=== PATIENT | female | born 2000 | race Caucasian/White ===

== ENCOUNTER 2020-02-26 17:26 | Emergency (ER) | payer SELFPAY ==
[~2020-02-26] VITALS: Ht 157.5 cm; Wt 91.0 kg
[2020-02-26 17:36] VITALS: BP 147/90
[2020-02-26] MEDS ORDERED: VALA10005 PO (17:43)
[2020-02-26] MEDS ORDERED: MUPI15CR8 TP (17:43)
[2020-02-26] MEDS ORDERED: PRED50TA PO (17:43)
--- NOTE | 2020-02-26 17:44 | PHYS DOC ---
Past History Past Medical History: No Pertinent History Smoking: Non-smoker General Adult EDM: Chief Complaint: SKIN RASH/ABSCESS HPI: HPI: 19-year-old female otherwise healthy, who presents for evaluation of a one-week history of vesicular rash at the dorsal aspect of the right fifth digit overlying the PIP joint. It is mildly pruritic and brandon occasionally. She is a prior history of herpes zoster that affected her left flank. She has no other similar lesions. Denies perineal rash. No fevers or chills. Review of Systems: Review of Systems: General: No fevers, chills. CV: No chest pain, edema. Resp: No shortness of breath, cough. GI: No abdominal pain, nausea, vomiting. : No dysuria, discharge, or perineal rash. Neuro: No headache, dizziness. MSK: Reports right fifth digit discomfort. Skin: Reports rash. Remainder of systems reviewed and otherwise negative unless specified. Heart Score: Risk Factors: Risk Factors: DM, Current or recent (<one month) smoker, HTN, HLP, family history of CAD, obesity. Risk Scores: Score 0 - 3: 2.5% MACE over next 6 weeks - Discharge Home Score 4 - 6: 20.3% MACE over next 6 weeks - Admit for Clinical Observation Score 7 - 10: 72.7% MACE over next 6 weeks - Early Invasive Strategies Physical Exam: PE: Gen: NAD. Well nourished. Head: NC/AT Eyes: No scleral icterus. No conjunctival injection. ENT: MMM. Posterior OP clear. Neck: Supple. NT. CV: RRR. Peripheral pulses intact. Resp: CTAB. MSK: No peripheral cyanosis. Non-circumferential vesicular rash approximately 1.5 cm in diameter at the dorsal aspect of the right fifth digit overlying the PIP joint without limitations and active range of motion. No rash elsewhere in the extremities. Neuro: Awake and alert. Skin: Warm. Dry. Psych: Appropriate mood & affect. EKG: EKG: [] Radiology/Procedures: Radiology/Procedures: [] Course & Med Decision Making: Course & Med Decision Making In summary, 19-year-old female who presents with vesicular rash the right fifth digit, concerning for herpes infection, either local or possibly early manifestation of zoster. Would be an atypical location for a herpetic arash, though still within realm of possibility. No systemic symptoms. No rash el sewhere. She be treated with Valtrex and prednisone, first dose here. We'll also prescribe topical mupirocin to decrease the likelihood of bacterial superinfection. Advised not to disrupt the vesicles, as this would spread the infection. Advised proper hygiene. Will be discharged home with prescriptions for Valtrex, prednisone, mupirocin. Outpatient PMD follow-up. Return precautions given. Pamella Disclaimer: Pamella Disclaimer: This electronic medical record was generated, in whole or in part, using a voice recognition dictation system. Departure Departure: Impression: Primary Impression: Vesicular rash Disposition: HOME, SELF-CARE Condition: STABLE Referrals: PCP,LIZETH (PCP) Patient Instructions: Herpes Simplex Additional Instructions: Please do not touch the rash. Apply the prescribed ointment with a Q-tip or with a gloved finger to prevent bacterial superinfection. Take all of the prescribed antiviral and prednisone. Follow up with your primary doctor. Return to the ED if you develop new or worsening symptoms. Scripts Mupirocin Calcium (MUPIROCIN) 15 Gm Cream..g. 1 NEVAEH TP TID for rash for 10 Days, #30 GM 0 Refills Prov: JARROD MÉNDEZ H DO 02/26/20 Prednisone (PREDNISONE) 50 Mg Tablet 1 TAB PO DAILY for rash, #7 TAB You received this medication in the emergency room today. You will starting your next dose tomorrow. Prov: LEJARROD H DO 02/26/20 Valacyclovir Hcl (VALTREX) 1,000 Mg Tablet 1 TAB PO TID for rash, #21 TAB Prov: LEJARROD H DO 02/26/20 LEJARROD DO Feb 26, 2020 17:44
[2020-02-26] MEDS ORDERED: predniSONE 20 MG TABLET PO ONE (18:15)
[2020-02-26] MEDS ORDERED: valACYclovir 500 MG TABLET. PO SCH (18:15)
== END 2020-02-26 17:52 | disposition home or self-care (01) ==
LOC: ER 17:26
DX: R23.8 Other skin changes (principal)
CPT/HCPCS: 99283; J7512

== ENCOUNTER 2020-06-08 11:54 | Emergency (ER) | payer MEDICAID ==
[~2020-06-08] VITALS: Ht 157.5 cm; Wt 91.0 kg
[~2020-06-08 11:54] MED LIST: MUPI15CR8 TP; PRED50TA PO; VALA10005 PO
[2020-06-08] MEDS ORDERED: CLIN300C8 PO (12:55)
--- NOTE | 2020-06-08 12:55 | PHYS DOC ---
Past History Past Medical History: No Pertinent History Additional Past Medical Histor: SHINGLES, MRSA Past Surgical History: Cholecystectomy, Tonsillectomy Smoking: Non-smoker Alcohol Use: None General Adult EDM: Chief Complaint: SKIN PROBLEM HPI: HPI: Patient is a [age] year old [sex] who presents with [] Review of Systems: Review of Systems: Constitutional: Denies fever or chills Eyes: Denies change in visual acuity HENT: Denies nasal congestion or sore throat Respiratory: Denies cough or shortness of breath Cardiovascular: Denies chest pain or edema GI: Denies abdominal pain, nausea, vomiting, bloody stools or diarrhea : Denies dysuria Musculoskeletal: Denies back pain or joint pain Integument: Denies rash Neurologic: Denies headache, focal weakness or sensory changes Endocrine: Denies polyuria or polydipsia Lymphatic: Denies swollen glands Psychiatric: Denies depression or anxiety Heart Score: Risk Factors: Risk Factors: DM, Current or recent (<one month) smoker, HTN, HLP, family history of CAD, obesity. Risk Scores: Score 0 - 3: 2.5% MACE over next 6 weeks - Discharge Home Score 4 - 6: 20.3% MACE over next 6 weeks - Admit for Clinical Observation Score 7 - 10: 72.7% MACE over next 6 weeks - Early Invasive Strategies Allergies: Allergies: Allergies Coded Allergies Type Severity Reaction Last Updated Verified Penicillins Allergy Unknown RASH 06/08/20 Yes Physical Exam: PE: Constitutional: Well developed, well nourished, no acute distress, non-toxic appearance. [] HENT: Normocephalic, atraumatic, bilateral external ears normal, oropharynx moist, no oral exudates, nose normal. [] Eyes: PERRLA, EOMI, conjunctiva normal, no discharge. [] Neck: Normal range of motion, no tenderness, supple, no stridor. [] Cardiovascular:Heart rate regular rhythm, no murmur [] Lungs & Thorax: Bilateral breath sounds clear to auscultation [] Abdomen: Bowel sounds normal, soft, no tenderness, no masses, no pulsatile masses. [] Skin: Warm, dry, no erythema, no rash. [] Back: No tenderness, no CVA tenderness. [] Extremities: No tenderness, no cyanosis, no clubbing, ROM intact, no edema. [] Neurologic: Alert and oriented X 3, normal motor function, normal sensory function, no focal deficits noted. [] Psychologic: Affect normal, judgement normal, mood normal. [] EKG: EKG: [] Radiology/Procedures: Radiology/Procedures: [] Course & Med Decision Making: Course & Med Decision Making Pertinent Labs and Imaging studies reviewed. (See chart for details) [] Dragon Disclaimer: Dragon Disclaimer: This electronic medical record was generated, in whole or in part, using a voice recognition dictation system. Departure Departure: Impression: Primary Impression: Cellulitis and abscess of right leg Disposition: HOME/RESIDENCE PRIOR TO ADM Condition: STABLE Referrals: PCP,NO (PCP) Patient Instructions: Abscess, [id number] Additional Instructions: The area of swelling and redness is concerning for the start of an abscess. It does not appear that it would be able to incise and drain. Please take antibiotic as prescribed. If symptoms worsen or if area become more prominent please present to your family physician and/or the ED for re-evaluation. Scripts Clindamycin Hcl (CLINDAMYCIN HCL) 300 Mg Capsule 1 CAP PO TID for infection, #21 CAP Prov: LAURA CUNNINGHAM DO 06/08/20 LAURA CUNNINGHAM DO Jun 08, 2020 12:55
[2020-06-08] MEDS ORDERED: CLINDAMYCIN HCL 150 MG CAPSULE PO ONE (13:00)
[2020-06-08 13:02] VITALS: BP 124/77
== END 2020-06-08 13:06 | disposition home or self-care (01) ==
LOC: ER 11:54
DX: L02.415 Cutaneous abscess of right lower limb (principal); L03.115 Cellulitis of right lower limb; Z86.14 Personal history of Methicillin resistant Staphylococcus aureus infection; Z88.0 Allergy status to penicillin
CPT/HCPCS: 99283

== ENCOUNTER 2020-08-16 14:18 | Emergency (ER) | payer MEDICAID ==
[~2020-08-16] VITALS: Ht 157.5 cm; Wt 98.3 kg
[2020-08-16 14:18] VITALS: BP 147/97
[~2020-08-16 14:18] MED LIST changes: +CLIN300C8 PO
[2020-08-16] MEDS ORDERED: ACYC5CRE2 TP (15:09)
--- NOTE | 2020-08-16 15:09 | PHYS DOC ---
Past History Past Medical History: Asthma, MRSA Additional Past Medical Histor: SHINGLES, MRSA Past Surgical History: Cholecystectomy, Tonsillectomy, Other Additional Past Surgical Histo: adnoidectomy; multiple I&D Smoking: Cigarettes Alcohol Use: Occasionally Drug Use: None General Adult EDM: Chief Complaint: SKIN RASH/ABSCESS HPI: HPI: History obtained for the patient. Patient is a 20-year-old female who presents with chief complaint of rash to her right index finger. Patient states she has noted progressive rash over the past several days. States it is somewhat itchy and painful. She states it appears like a small fluid-filled blister. She does she has had this once before and was diagnosed with herpetic arash. She states she was given medication in the past that improved her symptoms. She is unsure what the name of this medicine is. She denies any fevers. She denies any vomiting. She denies any redness or increased warmth to the finger. Denies any difficulty in range of motion. Denies numbness or tingling. Denies any known history of herpes or chickenpox. Has not tried medicine prior to arrival. No other complaints. Review of Systems: Review of Systems: Constitutional: Denies fever or chills Eyes: Denies change in visual acuity HENT: Denies nasal congestion or sore throat Respiratory: Denies cough or shortness of breath Cardiovascular: Denies chest pain or edema GI: Denies abdominal pain, nausea, vomiting, bloody stools or diarrhea : Denies dysuria Musculoskeletal: Denies back pain or joint pain Integument: Positive for rash Neurologic: Denies headache, focal weakness or sensory changes Endocrine: Denies polyuria or polydipsia Lymphatic: Denies swollen glands Psychiatric: Denies depression or anxiety Heart Score: Risk Factors: Risk Factors: DM, Current or recent (<one month) smoker, HTN, HLP, family history of CAD, obesity. Risk Scores: Score 0 - 3: 2.5% MACE over next 6 weeks - Discharge Home Score 4 - 6: 20.3% MACE over next 6 weeks - Admit for Clinical Observation Score 7 - 10: 72.7% MACE over next 6 weeks - Early Invasive Strategies Allergies: Allergies: Allergies Coded Allergies Type Severity Reaction Last Updated Verified Penicillins Allergy Unknown RASH 06/08/20 Yes Physical Exam: PE: Constitutional: Well developed, well nourished, no acute distress, non-toxic appearance. [] HENT: Normocephalic, atraumatic, bilateral external ears normal, oropharynx moist, no oral exudates, nose normal. [] Eyes: PERRLA, EOMI, conjunctiva normal, no discharge. [] Neck: Normal range of motion, no tenderness, supple, no stridor. [] Cardiovascular:Heart rate regular rhythm, no murmur [] Lungs & Thorax: Bilateral breath sounds clear to auscultation [] Abdomen: soft, no tenderness, no masses, no pulsatile masses. [] Skin: Warm, dry, no erythema, no rash. [] Back: No tenderness, no CVA tenderness. [] Extremities: Vesicular ullae 1 cm x 1 cm noted to the medial aspect of the right index finger. Overlying the PIP. No fusiform swelling. +2-4 DP pulse on the right. Access Lead strength intact. Currently movements intact. Sensation intact in the median, ulnar, and radial nerve distributions. Neurologic: Alert and oriented X 3, normal motor function, normal sensory function, no focal deficits noted. [] Psychologic: Affect normal, judgement normal, mood normal. [] Current Patient Data: Vital Signs: Vital Signs Date Time Temp Pulse Resp B/P (MAP) Pulse Ox O2 Delivery O2 Flow Rate FiO2 08/16/20 14:18 97.9 95 18 147/97 (114) 96 Room Air EKG: EKG: [] Radiology/Procedures: Radiology/Procedures: [] Course & Med Decision Making: Course & Med Decision Making Pertinent Labs and Imaging studies reviewed. (See chart for details) [] Patient is a well-appearing 20-year-old female presents with chief complaint of rash to her right index finger. Clinically this does appear potentially consistent with herpetic arash. No signs of abscess or bacterial infection. Incision and drainage will be deferred. Patient will begin topical acyclovir. She was instructed to follow-up with her primary care physician within the next week. Return precautions discussed and understood. Stable for discharge home. Pamella Disclaimer: Pamella Disclaimer: This electronic medical record was generated, in whole or in part, using a voice recognition dictation system. Departure Departure: Impression: Primary Impression: Herpetic arash Disposition: 01 HOME/RESIDENCE PRIOR TO ADM Condition: STABLE Referrals: PCP,LIZETH (PCP) AYDIN FREEMAN MD Patient Instructions: Herpetic Arash Additional Instructions: Please follow-up with your primary care physician within the next week. Scripts Acyclovir (ZOVIRAX) 5 Gm Cream..g. 1 NEVAEH TP 5XDAY for rash, #5 GM 1 Refill Prov: MIRANDA MONGE DO 08/16/20 MIRANDA MONGE DO Aug 16, 2020 15:09
== END 2020-08-16 15:20 | disposition home or self-care (01) ==
LOC: ER 14:18
DX: B00.89 Other herpesviral infection (principal); J45.909 Unspecified asthma, uncomplicated; F17.210 Nicotine dependence, cigarettes, uncomplicated; Z86.14 Personal history of Methicillin resistant Staphylococcus aureus infection; Z88.0 Allergy status to penicillin
CPT/HCPCS: 99283

== ENCOUNTER 2020-09-02 12:53 | Emergency (ER) | payer MEDICAID ==
[~2020-09-02] VITALS: Ht 157.5 cm; Wt 98.8 kg
[~2020-09-02 12:53] MED LIST changes: +ACYC5CRE2 TP
--- NOTE | 2020-09-02 13:19 | PHYS DOC ---
Past History Past Medical History: Anxiety, Asthma, Depression, MRSA Additional Past Medical Histor: SHINGLES, MRSA Past Surgical History: Cholecystectomy, Tonsillectomy, Other Additional Past Surgical Histo: adnoidectomy; multiple I&D Smoking: Cigarettes Alcohol Use: Occasionally Drug Use: None General Adult EDM: Chief Complaint: MULTIPLE COMPLAINTS HPI: HPI: Patient is a 20 year old female who presents for evaluation of multiple complaints. Patient states her period is about 2 weeks late. She is concerned because she has had prior miscarriages in the past. She had 2 negative home tests. She also has some clear vaginal discharge. She states that she also had recent nausea vomiting after eating [place] fries yesterday. Furthermore she has generalized malaise. Patient has a history of chronic anxiety. Patient is a 2 para 0 miscarriage 2. Patient has not toxic appearing. Patient states she is has a recent breast tenderness as well Review of Systems: Review of Systems: Constitutional: Denies fever or chills Eyes: Denies change in visual acuity HENT: Denies nasal congestion or sore throat Respiratory: Denies cough or shortness of breath Cardiovascular: Denies chest pain or edema GI: lower abdominal discomfort with nausea and vomiting, no bloody stools or diarrhea : Denies dysuria Musculoskeletal: Denies back pain or joint pain Integument: Denies rash Neurologic: Denies headache, focal weakness or sensory changes Endocrine: Denies polyuria or polydipsia Lymphatic: Denies swollen glands Psychiatric: Denies depression has anxiety Allergies: Allergies: Allergies Coded Allergies Type Severity Reaction Last Updated Verified Penicillins Allergy Unknown RASH 06/08/20 Yes adhesive tape Allergy Unknown 09/02/20 Yes Physical Exam: PE: Constitutional: Well developed, well nourished, no acute distress, non-toxic appearance. [] HENT: Normocephalic, atraumatic, bilateral external ears normal, oropharynx moist, no oral exudates, nose normal. [] Eyes: PERRL, EOMI, conjunctiva normal, no discharge. [] Neck: Normal range of motion, no tenderness, supple, no stridor. [] Cardiovascular:Heart rate regular rhythm, no murmur [] Lungs & Thorax: Bilateral breath sounds clear to auscultation [] Abdomen: Bowel sounds normal, soft, no tenderness, no masses. [] Skin: Warm, dry, no erythema, no rash, 1 cm abscess right groin area upper thigh. [] Back: No tenderness. [] Extremities: No tenderness, no cyanosis, ROM intact, no edema. [] Neurologic: Alert and oriented X 3, normal motor function, normal sensory function, no focal deficits noted. [] Psychologic: Affect abnormal, judgement abnormal, mood abnormal. : Scant discharge present, no adnexal or uterine tenderness, nursing female public relations analyst present [] Current Patient Data: Labs: Laboratory Tests Test 09/02/20 13:10 09/02/20 13:34 09/02/20 13:57 Urine Collection Type Unknown Urine Color Yellow Urine Clarity Hazy Urine pH 8.0 Urine Specific [place] 1.025 Urine Protein Neg Urine Glucose (UA) Neg mg/dL Urine Ketones (Stick) Neg mg/dL Urine Blood Neg Urine Nitrite Neg Urine Bilirubin Neg Urine Urobilinogen Dipstick 0.2 mg/dL Urine Leukocyte Esterase Trace Urine RBC 3-5 /HPF Urine WBC 5-10 /HPF Urine Squamous Epithelial Cells Many /LPF Urine Bacteria Few /HPF Bedside Urine HCG, Qualitative hcg negative Maternal Serum HCG Beta Subunit 1 mIU/mL Current Medications Medications (Trade) Dose Ordered Sig/Robina Route PRN Reason Start Time Stop Time Status Last Admin Dose Admin Lidocaine HCl 20 ml 1X ONCE IJ 09/02/20 14:30 09/02/20 14:31 DC 09/02/20 14:10 Lidocaine HCl 20 ml STK-MED ONCE .ROUTE 09/02/20 14:07 09/02/20 14:07 DC Vital Signs: Vital Signs Date Time Temp Pulse Resp B/P (MAP) Pulse Ox O2 Delivery O2 Flow Rate FiO2 09/02/20 13:02 99.4 103 18 126/88 (101) 97 Room Air EKG: EKG: [] Radiology/Procedures: Radiology/Procedures: [] Heart Score: Risk Factors: Risk Factors: DM, Current or recent (<one month) smoker, HTN, HLP, family history of CAD, obesity. Risk Scores: Score 0 - 3: 2.5% MACE over next 6 weeks - Discharge Home Score 4 - 6: 20.3% MACE over next 6 weeks - Admit for Clinical Observation Score 7 - 10: 72.7% MACE over next 6 weeks - Early Invasive Strategies Course & Med Decision Making: Course & Med Decision Making Pertinent Labs and Imaging studies reviewed. (See chart for details) urine preg test normal Pamella Disclaimer: Pamella Disclaimer: This electronic medical record was generated, in whole or in part, using a voice recognition dictation system. 1500 stable, medically cleared at this time. Patient is not nor has she been recently. Beta quant is 1. There was an incision and drainage done on her right upper inner thigh groin abscess. Nursing public relations analyst present during this procedure. Scant drainage obtained. Small wick quarter inch noniodoform gauze placed. Detailed wound care instructions given. Patient advised to call and see a family doctor or senior project manager engineering right away regarding her irregular periods Departure Departure: Impression: Primary Impression: Groin abscess Additional Impression: Irregular periods/menstrual cycles Disposition: HOME SELF CARE/HOMELESS Condition: STABLE Referrals: PCP,LIZETH (PCP) Patient Instructions: Abscess, Care After Additional Instructions: Call and see your SHOVEL LOG LOADER OPERATOR right away about your irregular periods, follow instructions for post abscess drainage. Take antibiotics as directed Scripts Doxycycline Hyclate (DOXYCYCLINE HYCLATE) 100 Mg Capsule 1 CAP PO BID for abscess, #14 CAP Prov: NEYMAR VEGAS DO 09/02/20 Incision and Drainage Incision and Drainage : Site: right upper/inner thigh Blade Size: 16 I & D Procedure: sterile drapes applied, sterile dressing applied, gauze wick placed Progress Skin drainage from wound, lidocaine used for local anesthesia 2% approximately 4 mL, packing placed quarter inch noniodoform gauze NEYMAR VEGAS DO Sep 02, 2020 13:19
[2020-09-02 13:48] LABS: BILIRUBIN,URINE NEG (NEG); CLARITY,URINE HAZY; COLOR,URINE YELLOW; GLUCOSE,URINE NEG (NEG)
[2020-09-02 13:49] LABS: BACTERIA,URINE FEW /HPF (0-FEW); NITRITE,URINE NEG (NEG); SQUAMOUS EPITHELIAL CELL,UR MANY /LPF; UROBILINOGEN,URINE 0.2 mg/dL (0.2 mg/dL)
[2020-09-02] MEDS ORDERED: LIDOCAINE 2% 20 ML VIAL. ONE (14:07)
[2020-09-02] MEDS ORDERED: LIDOCAINE 2% 20 ML VIAL. IJ ONE (14:30)
[2020-09-02] MEDS ORDERED: DOXY100C2 PO (15:07)
[2020-09-02 15:55] VITALS: BP 132/79
[2020-09-03 19:10] LABS: CHLAMYDIA PROBE Negative (Negative)
== END 2020-09-02 15:55 | disposition home or self-care (01) ==
LOC: ER 12:53
DX: L02.214 Cutaneous abscess of groin (principal); N92.6 Irregular menstruation, unspecified; J45.909 Unspecified asthma, uncomplicated; F17.210 Nicotine dependence, cigarettes, uncomplicated; Z86.14 Personal history of Methicillin resistant Staphylococcus aureus infection; Z88.0 Allergy status to penicillin; Z88.8 Allergy status to other drugs, medicaments and biological substances
CPT/HCPCS: 10060; 36415; 81001; 81025; 84702; 87086; 87491; 87591; 99284; J2001; Q0111

== ENCOUNTER 2021-01-17 11:52 | Emergency (ER) | payer MEDICAID ==
[~2021-01-17] VITALS: Ht 157.5 cm; Wt 107.6 kg
[~2021-01-17 11:52] MED LIST changes: -CLIN300C8 PO; +CLIN300C9 PO; +DOXY100C2 PO
[2021-01-17 12:17] VITALS: BP 144/98
--- NOTE | 2021-01-17 12:26 | PHYS DOC ---
Past History Past Medical History: No Pertinent History Additional Past Medical Histor: SHINGLES, MRSA (SOLIS BETH DO) Past Surgical History: No Surgical History Additional Past Surgical Histo: adnoidectomy; multiple I&D (SOLIS BETH DO) Smoking: Cigarettes Alcohol Use: Occasionally Drug Use: None (SOLIS BETH DO) General Adult EDM: Chief Complaint: ABSCESS HPI: HPI: 20-year-old obese female past medical history significant for shingles, MRSA, and h/o buttock/labial abscesses, presents to the ED with complaints of tender, painful abscess over left lower buttock, "I wanted to get it drained before it w orsened." Reports prediabetes and thyroid disease runs in her family. States she sweats a lot at work, uses wet wipes, then cleans with dry toilet paper (skin stays dry). Reports vaccines are up-to-date including tetanus. Denies any known bug bite or skin tear from shaving. (SOLIS BETH DO) Review of Systems: Review of Systems: Constitutional: Denies fever or chills Eyes: Denies change in visual acuity HENT: Denies nasal congestion or sore throat Respiratory: Denies cough or shortness of breath Cardiovascular: Denies chest pain or edema GI: Denies abdominal pain, nausea, vomiting, bloody stools or diarrhea : Denies dysuria, hematuria, vaginal bleeding, abnormal vaginal discharge itching or odor Musculoskeletal: Denies back pain or joint pain Integument: Denies rash or diaphoresis Neurologic: Denies headache, focal weakness or sensory changes Endocrine: Denies polyuria or polydipsia Lymphatic: Denies swollen glands Psychiatric: Denies depression or anxiety (SOLIS BETH DO) Allergies: Allergies: Allergies Coded Allergies Type Severity Reaction Last Updated Verified Penicillins Allergy Unknown RASH 06/08/20 Yes adhesive tape Allergy Unknown 09/02/20 Yes (SOLIS BETH DO) Physical Exam: PE: Constitutional: Well developed, well nourished, no acute distress, non-toxic appearance. HENT: Normocephalic, atraumatic, Eyes: EOMI, conjunctiva normal, no discharge. Neck: Normal range of motion, supple, Cardiovascular: S1/2 present, regular rhythm Lungs & Thorax: Speaking in full sentences, bilateral equal chest rise, no tachypnea or increased work of breathing Abdomen: soft, no tenderness, Skin: Warm, dry, no erythema, no rash. Back: No tenderness, no CVA tenderness. [] Extremities: No tenderness, no cyanosis, no lower extremity edema Neurologic: Alert and oriented X 3, normal motor function, normal sensory function, no focal deficits noted. [] Psychologic: Affect normal, judgement normal, mood normal. [] Pelvic: Chaperoned by RN, external genitalia normal, no visible vaginal bleeding, ttp 3x3cm induration/raised region over left lower buttock w/ pea- sized region of fluctuance =skin hanging below gluteal cleft, w/no surrounding erythema, old scar over same location on right lower buttock/reports prior I&D, scar just lateral of buttock crease on the left side from prior abscess vs pilonidal cyst s/p I&D, no labial swelling/rash, no subcutaneous emphysema or pain out of proportion (SOLIS BETH DO) Current Patient Data: Vital Signs: Vital Signs Date Time Temp Pulse Resp B/P (MAP) Pulse Ox O2 Delivery O2 Flow Rate FiO2 01/17/21 12:17 99.0 101 20 144/98 (113) 98 Room Air (SOLIS BETH DO) EKG: EKG: [] (SOLIS BETH DO) Radiology/Procedures: Radiology/Procedures: [] (SOLIS BETH DO) Heart Score: C/O Chest Pain: No Risk Factors: Risk Factors: DM, Current or recent (<one month) smoker, HTN, HLP, family history of CAD, obesity. Risk Scores: Score 0 - 3: 2.5% MACE over next 6 weeks - Discharge Home Score 4 - 6: 20.3% MACE over next 6 weeks - Admit for Clinical Observation Score 7 - 10: 72.7% MACE over next 6 weeks - Early Invasive Strategies (SOLIS BETH DO) Course & Med Decision Making: Course & Med Decision Making Pertinent Labs and Imaging studies reviewed. (See chart for details) Concern for lymphatic abscess with no surrounding cellulitis. I&D performed by [facility] w/packing - 2-3 cc purlence expressed/loculations removed. Patient tolerated procedure, will have significant other pick her up. Vaccines are up-to-date. Given history of MRSA will prescribe Bactrim. Wound follow-up in 48 hours for re-packing/wound check. Will discharge home with strict ED return precautions were given for fever, worsening rash or severe pain. Encouraged urgent outpatient follow-up with PMD, will refer to wound care center. Life- threatening processes were considered but are low suspicion at this time, given history, physical exam and ED workup. Pt was educated on all prescription medications and adverse effects. All patient's questions were answered and pt was stable at time of discharge. Life/limb-threatening differential includes but is not limited to, erythema multiforme, tavera-haydee syndrome, toxic epidermal necrolysis, staphylococcal scalded skin syndrome, necrotizing fasciitis/myositis/cellulitis, purpura fulminans, heparin or warfarin induced skin necrosis, angioedema, anaphylaxis drug rash, disseminated intravascular coagulation, disseminated gonococcal disease, vasculitis, septicemia, petechial disorder or coagulopathy, viral exanthem, Kawasaki's disease or life-threatening burn requiring burn center management or escharotomy. I spoken with the patient and her caregivers. I explained the patient's condition, diagnoses and treatment plan based on the information available to me at this time. I have answered the patient and her caregiver's questions and ad dressed any concerns. The patient and her caregivers have a good understanding of patient's diagnosis, condition and treatment plan as can be expected at this point. Vital signs have been stable. Patient's condition is stable and appropriate for discharge from the emergency department. Patient will pursue further outpatient evaluation with primary care physician or other designated or consulting physician as outlined in the discharge instructions. The patient and/or caregivers are agreeable to this plan of care and follow-up instructions have been explained in detail. The patient and/or caregivers have received these instructions in written form and have expressed an understanding of the discharge instructions. The patient and/or caregivers are aware that any significant change of condition or worsening of symptoms should prompt immediate return to this or the closest emergency department or call to 911. (SOLIS BETH DO) Pamella Disclaimer: Pamella Disclaimer: This electronic medical record was generated, in whole or in part, using a voice recognition dictation system. (SOLIS BETH DO) Incision and Drainage Indication: [INDICATION:] Procedure: The patient was positioned appropriately and the skin over the incision site was [PREP FOR PROCEDURE:]. Local anesthesia was [ANESTHESIA:]. An incision was then made over the [INCISION SITE:] and [DRAINAGE AMT:] material was expressed. Loculations were [LOCULATIONS:]. The drainage cavity was then [CAVITY DISP:]. The patients tetanus status [TETANUS STATUS:]. The patient tolerated the procedure [TOLERATED:]. Complications: [COMPLICATIONS:] (IGNACIA,SOLIS Rai ) Incision and Drainage Indication: Abscess at gluteal fold Procedure: The patient was positioned appropriately and the skin over the incision site was prepped and cleansed with Betadine. Local anesthesia was was achieved with 3 cc 0.5% Marcaine. An incision was then made over the central punctum of abscess and approximately 3 cc of bloody purulent drainage material was expressed, a culture was obtained and sent to lab. Loculations were disrupte d with curved forcep. The drainage cavity was then vigorously irrigated with 240 cc pressurized normal saline then packed with 1 inch iodoform gauze, a gauze dressing was placed by ED nursing staff. The patients tetanus status is up-to-date, patient states last tetanus immunization was less than 5 years ago. The patient tolerated the procedure well. Complications: There were no complications. (LAURA BAZZI APRN) Departure Departure: Impression: Primary Impression: Abscess Disposition: 01 DC HOME SELF CARE/HOMELESS Condition: GOOD Referrals: PCP,LIZETH (PCP) FOLLOW UP WITH FAMILY MEDICINE: Family Medicine Address: [address] [place] [address] Patient Instructions: Abscess Additional Instructions: Your abscess was drained today and emergency department, I have placed a packing material in the abscess to prevent premature closure of opening to reduce reinfection. Please have the packing/incision site reassessed in 2 days at your primary care physician's office. Please take prescribed antibiotics as directed, return to the emergency department for worsening symptoms or other concerns. FOLLOW UP WITH WOUND CARE: [facility] Address: [address], [address] [place] [address] EMERGENCY DEPARTMENT GENERAL DISCHARGE INSTRUCTIONS Thank you for coming to [facility] (ED) today and trusting us with you care. We trust that you had a positivie experience in our Emergency Department. If you wish to speak to the department management, you may call the director at [phone]. YOUR FOLLOW UP INSTRUCTIONS ARE FOLLOWS: 1. Do you have a private Doctor? If you do not have a private doctor, please ask for a resource list of physicians or clinics that may be able to assist you with follow up care. 2. The Emergency Physician has interpreted your x-rays. The X-Ray specialist will also review them. If there is a change in the findings, you will be notified in 48 hours when at all possible. 3. A lab test or culture has been done, your results will be reviewed and you will be notified if you need a change in treatment. ADDITIONAL INSTRUCTIONS AND INFORMATION: 1. Your care today has been supervised by a physician who is specially trained in emergency care. Many problems require more than one evaluation for a complete diagnosis and treatment. We recommend that you schedule your follow up appointment as recommended to ensure complete treatment of you illness or injury. If you are unable to obtain follow up care and continue to have a problem, or if your condition worsens, we recommend that you return to the ED. 2. We are not able to safely determine your condition over the phone nor are we able to give sound medical advice over the phone. For these safety reasons, if you call for medical advice we will ask you to come to the ED for further evaluation. 3. If you have any questions regarding these discharge instructions please call the ED at [phone]. SAFETY INFORMATION: In the interest of safety, wellness, and injury prevention; we encourage you to wear your sealbelt, if you smoke; quite smoking, and we encourage family to use a protective helmet for bicycling and other sporting events that present an increased risk for head injury. IF YOUR SYMPTOMS WORSEN OR NEW SYMPTOMS DEVELOP, OR YOU HAVE CONCERNS ABOUT YOUR CONDITION; OR IF YOUR CONDITION WORSENS WHILE YOU ARE WAITING FOR YOUR FOLLOW UP APPOINTMENT; EITHER CONTACT YOUR PRIMARY CARE DOCTOR, THE PHYSICIAN WHOSE NAME AND NUMBER YOU WERE GIVEN, OR RETURN TO THE ED IMMEDIATELY. Scripts Sulfamethoxazole/Trimethoprim (BACTRIM DS TABLET) 1 Each Tablet 2 TAB PO BID for ABSCESS INFECTION for 7 Days, #28 TAB 0 Refills Prov: LAURA BAZZI APRN 01/17/21 SOLIS BETH DO Jan 17, 2021 12:26 LAURA BAZZI APRN Jan 17, 2021 13:46
[2021-01-17] MEDS ORDERED: SULF1TAB24 PO (13:53)
== END 2021-01-17 14:02 | disposition home or self-care (01) ==
LOC: ER 11:52
DX: L02.31 Cutaneous abscess of buttock (principal); F17.210 Nicotine dependence, cigarettes, uncomplicated; Z86.14 Personal history of Methicillin resistant Staphylococcus aureus infection; Z88.0 Allergy status to penicillin; Z88.8 Allergy status to other drugs, medicaments and biological substances
CPT/HCPCS: 10060; 87070; 96372; 99284; J3010; 99283

== ENCOUNTER 2021-01-19 13:47 | Emergency (ER) | payer MEDICAID ==
[~2021-01-19] VITALS: Ht 157.5 cm; Wt 107.6 kg
[~2021-01-19 13:47] MED LIST changes: +SULF1TAB24 PO
[2021-01-19 16:10] VITALS: BP 129/95
[2021-01-19] MEDS ORDERED: SULF1TAB24 PO (16:45)
--- NOTE | 2021-01-19 16:46 | PHYS DOC ---
Past History Past Medical History: No Pertinent History Additional Past Medical Histor: SHINGLES, MRSA Past Surgical History: No Surgical History Additional Past Surgical Histo: adnoidectomy; multiple I&D Smoking: Cigarettes Alcohol Use: Occasionally Drug Use: None General Adult EDM: Chief Complaint: WOUND CHECK HPI: HPI: Patient is a 20-year-old female who presents with abscess wound check. Patient was seen here 2 days ago and had her abscess drained and packed. Patient is currently taking Bactrim. Denies any complaints. Review of Systems: Review of Systems: Constitutional: Denies fever or chills Eyes: Denies change in visual acuity HENT: Denies nasal congestion or sore throat Respiratory: Denies cough or shortness of breath Cardiovascular: Denies chest pain or edema GI: Denies abdominal pain, nausea, vomiting, bloody stools or diarrhea : Denies dysuria Musculoskeletal: Denies back pain or joint pain Integument: Denies rash Neurologic: Denies headache, focal weakness or sensory changes Endocrine: Denies polyuria or polydipsia Lymphatic: Denies swollen glands Psychiatric: Denies depression or anxiety Allergies: Allergies: Allergies Coded Allergies Type Severity Reaction Last Updated Verified Penicillins Allergy Unknown RASH 06/08/20 Yes adhesive tape Allergy Unknown 09/02/20 Yes Physical Exam: PE: Constitutional: Well developed, well nourished, no acute distress, non-toxic appearance. [] HENT: Normocephalic, atraumatic, bilateral external ears normal, oropharynx moist, no oral exudates, nose normal. [] Eyes: PERRLA, EOMI, conjunctiva normal, no discharge. [] Neck: Normal range of motion, no tenderness, supple, no stridor. [] Cardiovascular:Heart rate regular rhythm, no murmur [] Lungs & Thorax: Bilateral breath sounds clear to auscultation [] Abdomen: Bowel sounds normal, soft, no tenderness, no masses, no pulsatile masses. [] Skin: Warm, dry, no erythema, no rash. [] Back: No tenderness, no CVA tenderness. [] Extremities: No tenderness, no cyanosis, no clubbing, ROM intact, no edema. [] Neurologic: Alert and oriented X 3, normal motor function, normal sensory function, no focal deficits noted. [] Psychologic: Affect normal, judgement normal, mood normal. [] Current Patient Data: Vital Signs: Vital Signs Date Time Temp Pulse Resp B/P (MAP) Pulse Ox O2 Delivery O2 Flow Rate FiO2 01/19/21 16:10 98.2 98 17 129/95 (106) 99 Room Air EKG: EKG: [] Radiology/Procedures: Radiology/Procedures: [] Heart Score: C/O Chest Pain: N/A Risk Factors: Risk Factors: DM, Current or recent (<one month) smoker, HTN, HLP, family history of CAD, obesity. Risk Scores: Score 0 - 3: 2.5% MACE over next 6 weeks - Discharge Home Score 4 - 6: 20.3% MACE over next 6 weeks - Admit for Clinical Observation Score 7 - 10: 72.7% MACE over next 6 weeks - Early Invasive Strategies Course & Med Decision Making: Course & Med Decision Making Pertinent Labs and Imaging studies reviewed. (See chart for details) []jean pierre is a 20-year-old female who presents with abscess wound check. Patient was seen here 2 days ago and had her abscess drained and packed. Patient is currently taking Bactrim. Denies fever. Patient is to continue to take Bactrim at home. Patient to return to emergency room with worsening complaints or concerns. Dragon Disclaimer: Flybits Disclaimer: This electronic medical record was generated, in whole or in part, using a voice recognition dictation system. Departure Departure: Impression: Primary Impression: Abscess Disposition: 01 DC HOME SELF CARE/HOMELESS Condition: STABLE Referrals: PCP,NO (PCP) Additional Instructions: You were seen in the emergency room today for a wound check. Your abscess ap pears to be healing appropriately. Please continue taking your antibiotics as prescribed from her previous visit. Return to the emergency room with worsening symptoms or concerns. EMERGENCY DEPARTMENT GENERAL DISCHARGE INSTRUCTIONS Thank you for coming to [facility] (ED) today and trusting us with you care. We trust that you had a positivie experience in our Emergency Department. If you wish to speak to the department management, you may call the director at [phone]. YOUR FOLLOW UP INSTRUCTIONS ARE FOLLOWS: 1. Do you have a private Doctor? If you do not have a private doctor, please ask for a resource list of physicians or clinics that may be able to assist you with follow up care. 2. The Emergency Physician has interpreted your x-rays. The X-Ray specialist will also review them. If there is a change in the findings, you will be notified in 48 hours when at all possible. 3. A lab test or culture has been done, your results will be reviewed and you will be notified if you need a change in treatment. ADDITIONAL INSTRUCTIONS AND INFORMATION: 1. Your care today has been supervised by a physician who is specially trained in emergency care. Many problems require more than one evaluation for a complete diagnosis and treatment. We recommend that you schedule your follow up appointment as recommended to ensure complete treatment of you illness or injury. If you are unable to obtain follow up care and continue to have a problem, or if your condition worsens, we recommend that you return to the ED. 2. We are not able to safely determine your condition over the phone nor are we able to give sound medical advice over the phone. For these safety reasons, if you call for medical advice we will ask you to come to the ED for further evaluation. 3. If you have any questions regarding these discharge instructions please call the ED at [phone]. SAFETY INFORMATION: In the interest of safety, wellness, and injury prevention; we encourage you to wear your sealbelt, if you smoke; quite smoking, and we encourage family to use a protective helmet for bicycling and other sporting events that present an increased risk for head injury. IF YOUR SYMPTOMS WORSEN OR NEW SYMPTOMS DEVELOP, OR YOU HAVE CONCERNS ABOUT YOUR CONDITION; OR IF YOUR CONDITION WORSENS WHILE YOU ARE WAITING FOR YOUR FOLLOW UP APPOINTMENT; EITHER CONTACT YOUR PRIMARY CARE DOCTOR, THE PHYSICIAN WHOSE NAME AND NUMBER YOU WERE GIVEN, OR RETURN TO THE ED IMMEDIATELY. Scripts Sulfamethoxazole/Trimethoprim (BACTRIM DS TABLET) 1 Each Tablet 2 EACH PO BID for infection for 7 Days, #28 TAB 2 Refills Prov: ZOFIA MILLER APRN 01/19/21 ZOFIA MILLER APRN Jan 19, 2021 16:46
== END 2021-01-19 16:50 | disposition home or self-care (01) ==
LOC: ER 13:47
DX: L02.214 Cutaneous abscess of groin (principal); F17.210 Nicotine dependence, cigarettes, uncomplicated; Z88.0 Allergy status to penicillin; Z88.8 Allergy status to other drugs, medicaments and biological substances
CPT/HCPCS: 99283

== ENCOUNTER 2021-05-20 13:36 | Emergency (ER) | payer MEDICAID ==
[~2021-05-20] VITALS: Ht 157.5 cm; Wt 109.4 kg
[2021-05-20] MEDS ORDERED: ONDANSETRON PF 4 MG/2 ML VIAL. IVP ONE (14:00)
[2021-05-20] MEDS ORDERED: IV NORMAL SALINE 1,000ML 1,000 ML IV ONE (14:00)
[2021-05-20 14:29] LABS: BASO # 0.1 x10^3/uL (0.0-0.2); BASO % 1 % (0-3); EOS # 0.3 x10^3/uL (0.0-0.7); EOS % 3 % (0-3); HEMATOCRIT 42.5 % (36.0-47.0); HEMOGLOBIN 14.6 g/dL (12.0-15.5); LYMPH # 1.4 x10^3/uL (1.0-4.8); LYMPH % 11 % (24-48); MEAN CORPUSCULAR HEMOGLOBIN 31 pg (25-35); MEAN CORPUSCULAR HGB CONC 34 g/dL (31-37); MEAN CORPUSCULAR VOLUME 89 fL (79-100); MONO # 0.6 x10^3/uL (0.0-1.1); MONO % 5 % (0-9); NEUT # 10.3 x10^3uL (1.8-7.7); NEUT % 81 % (31-73); PLATELET COUNT 234 x10^3/uL (140-400); RED BLOOD COUNT 4.77 x10^6/uL (3.50-5.40); RED CELL DISTRIBUTION WIDTH 14.6 % (11.5-14.5); WHITE BLOOD COUNT 12.6 x10^3/uL (4.0-11.0)
[2021-05-20 14:34] LABS: BILIRUBIN,URINE SMALL (NEG); CLARITY,URINE CLEAR; COLOR,URINE YELLOW; GLUCOSE,URINE NEG (NEG); NITRITE,URINE NEG (NEG); UROBILINOGEN,URINE 0.2 mg/dL (0.2 mg/dL)
--- NOTE | 2021-05-20 14:34 | PHYS DOC ---
Past History Past Medical History: No Pertinent History Additional Past Medical Histor: SHINGLES, MRSA Past Surgical History: Cholecystectomy, Other Additional Past Surgical Histo: adnoidectomy; multiple I&D Smoking: Cigarettes Alcohol Use: None Drug Use: None General Adult EDM: Chief Complaint: NAUSEA/VOMITING/DIARRHEA HPI: HPI: 20-year-old female presents with vomiting and diarrhea for the last 2 days. She has had such frequent diarrhea that she had to chute puller the side of the road. She has been able to keep down any liquids or solids today without vomiting and having diarrhea. She has never had symptoms like this before so she came to the ER. No one else at home is sick. Her only surgical history is gallbladder. She has had chills but no measured fever. Review of Systems: Review of Systems: Constitutional: Denies fever or chills Eyes: Denies change in visual acuity HENT: Denies nasal congestion or sore throat Respiratory: Denies cough or shortness of breath Cardiovascular: Denies chest pain or edema GI: Denies abdominal pain, nausea, vomiting, bloody stools or diarrhea : Denies dysuria Musculoskeletal: Denies back pain or joint pain Integument: Denies rash Neurologic: Denies headache, focal weakness or sensory changes Endocrine: Denies polyuria or polydipsia Lymphatic: Denies swollen glands Psychiatric: Denies depression or anxiety Current Medications: Current Meds: Current Medications Medications (Trade) Dose Ordered Sig/[facility] Start Time Stop Time Status Last Admin Dose Admin Ondansetron HCl (Zofran) 4 mg 1X ONCE 05/20/21 14:00 05/20/21 14:01 DC 05/20/21 14:11 4 MG Sodium Chloride 1,000 ml @ 1,000 mls/hr 1X ONCE 05/20/21 14:00 05/20/21 14:59 05/20/21 14:10 1,000 MLS/HR Allergies: Allergies: Allergies Coded Allergies Type Severity Reaction Last Updated Verified Penicillins Allergy Unknown RASH 05/20/21 Yes adhesive tape Allergy Unknown 05/20/21 Yes Physical Exam: PE: Constitutional: Well developed, well nourished, no acute distress, non-toxic appearance. [] HENT: Normocephalic, atraumatic, bilateral external ears normal, oropharynx moist, no oral exudates, nose normal. [] Eyes: PERRLA, EOMI, conjunctiva normal, no discharge. [] Neck: Normal range of motion, no tenderness, supple, no stridor. [] Cardiovascular:Heart rate regular rhythm, no murmur [] Lungs & Thorax: Bilateral breath sounds clear to auscultation [] Abdomen: Bowel sounds normal, soft, no tenderness, no masses, no pulsatile masses. [] Skin: Warm, dry, no erythema, no rash. [] Back: No tenderness, no CVA tenderness. [] Extremities: No tenderness, no cyanosis, no clubbing, ROM intact, no edema. [] Neurologic: Alert and oriented X 3, normal motor function, normal sensory function, no focal deficits noted. [] Psychologic: Affect normal, judgement normal, mood normal. [] Current Patient Data: Labs: Laboratory Tests Test 05/20/21 14:24 POC Urine HCG, Qualitative hcg negative (Negative) Vital Signs: Vital Signs Date Time Temp Pulse Resp B/P (MAP) Pulse Ox O2 Delivery O2 Flow Rate FiO2 05/20/21 14:13 115 16 116/59 (78) 96 Room Air 05/20/21 13:47 99.0 EKG: EKG: [] Radiology/Procedures: Radiology/Procedures: [] Impressions: EXAMINATION: CT ABDOMEN+PELVIS W CLINICAL HISTORY: Diffuse abdominal pain, nausea. TECHNIQUE: CT of the abdomen and pelvis was performed using standard technique, scanning from just above the dome of the diaphragm to the symphysis pubis following administration of intravenous contrast. CT Dose Reduction Employed: One or more of the following individualized dose reduction techniques were utilized for this examination: 1. Automated exposure control 2. Adjustment of the mA and/or kV according to patient size 3. Use of iterative reconstruction technique. COMPARISON: None FINDINGS: Minimal subsegmental atelectasis in the visualized lungs. Diffuse hypoattenuation of the hepatic parenchyma, compatible with steatosis. Cholecystectomy. Pancreas, spleen, adrenal glands, and kidneys unremarkable. Minimally filled urinary bladder suboptimally evaluated. Uterus and adnexa within normal limits for patient's age. No bowel dilation or definite wall thickening. Nondilated appendix. No abdominal aortic or iliac artery aneurysm. No evidence of acute osseous abnormality. IMPRESSION: No evidence of acute abdominopelvic abnormality. Electronically signed by: Mac Floyd DO (05/20/2021 3:50 PM) [facility] DICTATED AND SIGNED BY: MAC FLOYD DO DATE: 05/20/21 1541 CC: VONDA MCGOVERN DO; PCP,NO ~MTH0 0 Heart Score: C/O Chest Pain: N/A Risk Factors: Risk Factors: DM, Current or recent (<one month) smoker, HTN, HLP, family history of CAD, obesity. Risk Scores: Score 0 - 3: 2.5% MACE over next 6 weeks - Discharge Home Score 4 - 6: 20.3% MACE over next 6 weeks - Admit for Clinical Observation Score 7 - 10: 72.7% MACE over next 6 weeks - Early Invasive Strategies Course & Med Decision Making: Course & Med Decision Making Pertinent Labs and Imaging studies reviewed. (See chart for details) The patient was given 4 mg of Zofran and a liter normal saline for her vomiting. She did not have nausea for a while but then the nausea resumed and she developed a global headache. I have additionally given her 30 mg of Toradol, 10 mg of Reglan, [address] of the abdomen and pelvis is negative for acute findings. Her headache has improved. She is ready to go home. I will discharge the patient with Zofran. She is stable for discharge at this time. [] Dragon Disclaimer: Pamella Disclaimer: This electronic medical record was generated, in whole or in part, using a voice recognition dictation system. Departure Departure: Impression: Primary Impression: Nausea & vomiting Qualified Codes: R11.2 - Nausea with vomiting, unspecified Additional Impressions: Diarrhea Qualified Codes: R19.7 - Diarrhea, unspecified Vascular headache, not intractable Disposition: 01 HOME / SELF CARE / HOMELESS Condition: STABLE Referrals: PCP,NO (PCP) Patient Instructions: Diarrhea, [id number], Nausea and Vomiting, [id number] Scripts Ondansetron (ONDANSETRON ODT) 4 Mg Tab.rapdis 1 TAB PO PRN Q6-8HRS PRN for VOMITING, #16 TAB Prov: VONDA MCGOVERN DO 05/20/21 VONDA MCGOVERN DO May 20, 2021 14:34
[2021-05-20 14:37] LABS: BACTERIA,URINE MOD /HPF (0-FEW); SQUAMOUS EPITHELIAL CELL,UR MOD /LPF
[2021-05-20 14:38] LABS: CALCIUM 8.8 mg/dL (8.5-10.1); CREATININE 0.9 mg/dL (0.6-1.0); POTASSIUM 3.8 mmol/L (3.5-5.1)
[2021-05-20 14:44] LABS: ALBUMIN 4.2 g/dL (3.4-5.0); ALBUMIN/GLOBULIN RATIO 1.4 (1.0-1.7); TOTAL BILIRUBIN 0.6 mg/dL (0.2-1.0); TOTAL PROTEIN 7.3 g/dL (6.4-8.2)
[2021-05-20] MEDS ORDERED: IOHEXOL 300 MG/ML 75 ML VIAL. IV ONE (15:30)
[2021-05-20] MEDS ORDERED: CONTRAST GIVEN. MC PRN (15:45)
--- NOTE | 2021-05-20 15:53 | RAD ---
EXAMINATION: CT ABDOMEN+PELVIS W CLINICAL HISTORY: Diffuse abdominal pain, nausea. TECHNIQUE: CT of the abdomen and pelvis was performed using standard technique, scanning from just ab ove the dome of the diaphragm to the symphysis pubis following administration of intravenous contrast . CT Dose Reduction Employed: One or more of the following individualized dose reduction techniques wer e utilized for this examination: 1. Automated exposure control 2. Adjustment of the mA and/or kV ac cording to patient size 3. Use of iterative reconstruction technique. COMPARISON: None FINDINGS: Minimal subsegmental atelectasis in the visualized lungs. Diffuse hypoattenuation of the hepatic parenchyma, compatible with steatosis. Cholecystectomy. Pancre as, spleen, adrenal glands, and kidneys unremarkable. Minimally filled urinary bladder suboptimally evaluated. Uterus and adnexa within normal limits for p atient's age. No bowel dilation or definite wall thickening. Nondilated appendix. No abdominal aortic or iliac artery aneurysm. No evidence of acute osseous abnormality. IMPRESSION: No evidence of acute abdominopelvic abnormality. Electronically signed by: Mac Glass DO (05/20/2021 3:50 PM) [facility]
[2021-05-20] MEDS ORDERED: diphenhydrAMINE 50 MG/ML VIAL IVP ONE (16:15)
[2021-05-20] MEDS ORDERED: KETOROLAC 30 MG/ML VIAL. IVP ONE (16:15)
[2021-05-20] MEDS ORDERED: METOCLOPRAMIDE HCL 10 MG/2 ML VIAL. IVP ONE (16:15)
[2021-05-20] MEDS ORDERED: ONDA4TAB12 PO (17:14)
[2021-05-20 17:25] VITALS: BP 119/72
== END 2021-05-20 17:30 | disposition home or self-care (01) ==
LOC: ER 13:36
DX: R11.2 Nausea with vomiting, unspecified (principal); R19.7 Diarrhea, unspecified; G44.1 Vascular headache, not elsewhere classified; F17.210 Nicotine dependence, cigarettes, uncomplicated; Z90.49 Acquired absence of other specified parts of digestive tract; Z88.0 Allergy status to penicillin; Z88.8 Allergy status to other drugs, medicaments and biological substances
CPT/HCPCS: 36415; 74177; 80053; 81001; 81025; 85025; 87086; 96361; 96374; 96375; 99285; J1200; J1885; J2405; J2765; J7030; Q9967

== ENCOUNTER 2021-09-08 09:23 | Emergency (ER) | payer SELFPAY ==
[~2021-09-08] VITALS: Ht 157.5 cm; Wt 109.4 kg
[~2021-09-08 09:23] MED LIST changes: +CLIN-95 PO; -CLIN300C9 PO; -DOXY100C2 PO; +DOXY100C3 PO; +ONDA4TAB12 PO
[2021-09-08 09:27] VITALS: BP 143/86
[2021-09-08] MEDS ORDERED: ERYT1OIN6 OP (09:59)
--- NOTE | 2021-09-08 10:00 | PHYS DOC ---
Past History Past Medical History: No Pertinent History Additional Past Medical Histor: SHINGLES, MRSA Past Surgical History: Cholecystectomy, Other Additional Past Surgical Histo: adnoidectomy; multiple I&D Smoking: Cigarettes Alcohol Use: Occasionally Drug Use: None General Adult EDM: Chief Complaint: EYE PROBLEMS HPI: HPI: 21-year-old female presents with right eye irritation and pain. Patient woke up this morning and she had significant discharge in the right eye and it was erythematous. She went and put her contacts in, but they were irritating almost immediately. She waited a few minutes for the took the packing out. She thought the irritation will wear off but it has been a few hours and is still irritated. She continues to have thinner drainage at this time. She does not believe that she got a foreign body in her eye. It was feeling fine last night when she went to bed. Her left eye has no symptoms. Review of Systems: Review of Systems: Constitutional: Denies fever or chills Eyes: Erythematous right eye HENT: Denies nasal congestion or sore throat Respiratory: Denies cough or shortness of breath Cardiovascular: Denies chest pain or edema GI: Denies abdominal pain, nausea, vomiting, bloody stools or diarrhea : Denies dysuria Musculoskeletal: Denies back pain or joint pain Integument: Denies rash Neurologic: Denies headache, focal weakness or sensory changes Endocrine: Denies polyuria or polydipsia Lymphatic: Denies swollen glands Psychiatric: Denies depression or anxiety Allergies: Allergies: Allergies Coded Allergies Type Severity Reaction Last Updated Verified Penicillins Allergy Unknown RASH 05/20/21 Yes adhesive tape Allergy Unknown 05/20/21 Yes Physical Exam: PE: Constitutional: Well developed, well nourished, no acute distress, non-toxic appearance. [] HENT: Normocephalic, atraumatic, bilateral external ears normal, oropharynx moist, no oral exudates, nose normal. [] Eyes: PERRLA, EOMI, conjunctiva erythematous on the right with thin discharge. Left eye within normal limits.. [] Neck: Normal range of motion, no tenderness, supple, no stridor. [] Cardiovascular:Heart rate regular rhythm, no murmur [] Lungs & Thorax: Bilateral breath sounds clear to auscultation [] Abdomen: Bowel sounds normal, soft, no tenderness, no masses, no pulsatile masses. [] Skin: Warm, dry, no erythema, no rash. [] Back: No tenderness, no CVA tenderness. [] Extremities: No tenderness, no cyanosis, no clubbing, ROM intact, no edema. [] Neurologic: Alert and oriented X 3, normal motor function, normal sensory function, no focal deficits noted. [] Psychologic: Affect normal, judgement normal, mood normal. [] Current Patient Data: Vital Signs: Vital Signs Date Time Temp Pulse Resp B/P (MAP) Pulse Ox O2 Delivery O2 Flow Rate FiO2 09/08/21 09:27 97.9 92 16 143/86 (105) 98 Room Air EKG: EKG: [] Radiology/Procedures: Radiology/Procedures: [] Heart Score: C/O Chest Pain: N/A Risk Factors: Risk Factors: DM, Current or recent (<one month) smoker, HTN, HLP, family history of CAD, obesity. Risk Scores: Score 0 - 3: 2.5% MACE over next 6 weeks - Discharge Home Score 4 - 6: 20.3% MACE over next 6 weeks - Admit for Clinical Observation Score 7 - 10: 72.7% MACE over next 6 weeks - Early Invasive Strategies Course & Med Decision Making: Course & Med Decision Making Pertinent Labs and Imaging studies reviewed. (See chart for details) This could be a viral conjunctivitis, but I cannot rule out bacterial conjunctivitis. She is also a contact lens user. I have advised that she not wear contact lenses until she is done with treatment. I will treat her with erythromycin ointment for the next 7 days. She is stable for discharge at this time. [] Pamella Disclaimer: Pamella Disclaimer: This electronic medical record was generated, in whole or in part, using a voice recognition dictation system. Departure Departure: Impression: Primary Impression: Bacterial conjunctivitis of right eye Disposition: HOME / SELF CARE / HOMELESS Condition: STABLE Referrals: PCP,NO (PCP) Patient Instructions: Bacterial Conjunctivitis, [id number] Scripts Erythromycin Base (Erythromycin) 1 Gm Oint...g. 1 GM OP TID for bacterial conjunctivitis for 7 Days, #1 MISC Prov: VONDA MCGOVERN DO 09/08/21 VONDA MCGOVERN DO Sep 08, 2021 09:59
== END 2021-09-08 10:07 | disposition home or self-care (01) ==
LOC: ER 09:23
DX: H10.89 Other conjunctivitis (principal); F17.210 Nicotine dependence, cigarettes, uncomplicated; Z88.0 Allergy status to penicillin; Z88.8 Allergy status to other drugs, medicaments and biological substances
CPT/HCPCS: 99283

== ENCOUNTER 2021-11-02 09:21 | Emergency (ER) | payer MEDICAID ==
[~2021-11-02] VITALS: Ht 157.5 cm; Wt 104.5 kg
[~2021-11-02 09:21] MED LIST changes: +ERYT1OIN6 OP
--- NOTE | 2021-11-02 10:25 | RAD ---
Single AP view of the chest. Comparison: None. Indication: Shortness of breath Findings: The heart is not enlarged. There is no pneumothorax or effusion. No air space or interstitial diseas e. Impression: 1. No acute cardiopulmonary process. Electronically signed by: Sammy Mann MD (11/02/2021 10:23 AM) [id number]
[2021-11-02 11:07] LABS: BASO # 0.1 x10^3/uL (0.0-0.2); BASO % 1 % (0-3); EOS # 0.3 x10^3/uL (0.0-0.7); EOS % 3 % (0-3); HEMATOCRIT 42.8 % (36.0-47.0); HEMOGLOBIN 14.7 g/dL (12.0-15.5); LYMPH # 3.5 x10^3/uL (1.0-4.8); LYMPH % 37 % (24-48); MEAN CORPUSCULAR HEMOGLOBIN 30 pg (25-35); MEAN CORPUSCULAR HGB CONC 34 g/dL (31-37); MEAN CORPUSCULAR VOLUME 88 fL (79-100); MONO # 0.6 x10^3/uL (0.0-1.1); MONO % 6 % (0-9); NEUT % 53 % (31-73); PLATELET COUNT 199 x10^3/uL (140-400); RED BLOOD COUNT 4.84 x10^6/uL (3.50-5.40); RED CELL DISTRIBUTION WIDTH 13.3 % (11.5-14.5); WHITE BLOOD COUNT 9.4 x10^3/uL (4.0-11.0)
[2021-11-02 11:20] LABS: BACTERIA,URINE 0 /HPF (0-FEW); BILIRUBIN,URINE NEG (NEG); CLARITY,URINE HAZY; COLOR,URINE YELLOW; GLUCOSE,URINE NEG (NEG); NITRITE,URINE NEG (NEG); RBC,URINE OCC /HPF (0-2); SQUAMOUS EPITHELIAL CELL,UR MANY /LPF; UROBILINOGEN,URINE 0.2 mg/dL (0.2 mg/dL)
[2021-11-02 11:20] LABS: CALCIUM 8.9 mg/dL (8.5-10.1); CREATININE 0.8 mg/dL (0.6-1.0); GFR 89.7; POTASSIUM 3.8 mmol/L (3.5-5.1)
--- NOTE | 2021-11-02 11:31 | PHYS DOC ---
Past History Past Medical History: No Pertinent History Additional Past Medical Histor: SHINGLES, MRSA Past Surgical History: Cholecystectomy, Other Additional Past Surgical Histo: adnoidectomy; multiple I&D Smoking: Cigarettes Alcohol Use: Occasionally Drug Use: None General Adult EDM: Chief Complaint: Chest wall pain HPI: HPI: 21-year-old female presents with left chest wall pain. She states that it is mostly painful when she takes a deep breath. This has been bothering her for about 2 days. There is some discomfort with twisting her body not as much as a deep breath. Patient denies any falls or trauma. She has not had a significant cough. She does not have any other symptoms such as shortness of breath, diaphoresis, nausea, vomiting. She has no other complaints this time. Review of Systems: Review of Systems: Constitutional: Denies fever or chills Eyes: Denies change in visual acuity HENT: Denies nasal congestion or sore throat Respiratory: Denies cough or shortness of breath Cardiovascular: Left chest wall pain with deep breathing GI: Denies abdominal pain, nausea, vomiting, bloody stools or diarrhea : Denies dysuria Musculoskeletal: Denies back pain or joint pain Integument: Denies rash Neurologic: Denies headache, focal weakness or sensory changes Endocrine: Denies polyuria or polydipsia Lymphatic: Denies swollen glands Psychiatric: Denies depression or anxiety Allergies: Allergies: Allergies Coded Allergies Type Severity Reaction Last Updated Verified Penicillins Allergy Unknown RASH 05/20/21 Yes adhesive tape Allergy Unknown 05/20/21 Yes Physical Exam: PE: Constitutional: Well developed, well nourished, morbidly obese, no acute distress, non-toxic appearance. [] HENT: Normocephalic, atraumatic, bilateral external ears normal, oropharynx moist, no oral exudates, nose normal. [] Eyes: PERRLA, EOMI, conjunctiva normal, no discharge. [] Neck: Normal range of motion, no tenderness, supple, no stridor. [] Cardiovascular: Heart rate regular rhythm, no murmur [] Lungs & Thorax: Bilateral breath sounds clear to auscultation [] Abdomen: Bowel sounds normal, soft, no tenderness, no masses, no pulsatile masses. [] Skin: Warm, dry, no erythema, no rash. [] Back: No tenderness, no CVA tenderness. [] Extremities: No tenderness, no cyanosis, no clubbing, ROM intact, no edema. [] Neurologic: Alert and oriented X 3, normal motor function, normal sensory function, no focal deficits noted. [] Psychologic: Affect normal, judgement normal, mood normal. [] Current Patient Data: Labs: Laboratory Tests Test 11/02/21 10:09 11/02/21 10:13 11/02/21 10:22 Urine Collection Type Unknown Urine Color Yellow Urine Clarity Hazy Urine pH 5.5 Urine Specific [place] >=1.030 Urine Protein Neg (NEG-TRACE) Urine Glucose (UA) Neg mg/dL (NEG) Urine Ketones (Stick) Neg mg/dL (NEG) Urine Blood Neg (NEG) Urine Nitrite Neg (NEG) Urine Bilirubin Neg (NEG) Urine Urobilinogen Dipstick 0.2 mg/dL (0.2 mg/dL) Urine Leukocyte Esterase Neg (NEG) Urine RBC Occ /HPF (0-2) Urine WBC 1-4 /HPF (0-4) Urine Squamous Epithelial Cells Many /LPF Urine Bacteria 0 /HPF (0-FEW) Urine Mucus Slight /LPF POC Urine HCG, Qualitative hcg negative (Negative) White Blood Count 9.4 x10^3/uL (4.0-11.0) Red Blood Count 4.84 x10^6/uL (3.50-5.40) Hemoglobin 14.7 g/dL (12.0-15.5) Hematocrit 42.8 % (36.0-47.0) Mean Corpuscular Volume 88 fL (79-100) Mean Corpuscular Hemoglobin 30 pg (25-35) Mean Corpuscular Hemoglobin Concent 34 g/dL (31-37) Red Cell Distribution Width 13.3 % (11.5-14.5) Platelet Count 199 x10^3/uL (140-400) Neutrophils (%) (Auto) 53 % (31-73) Lymphocytes (%) (Auto) 37 % (24-48) Monocytes (%) (Auto) 6 % (0-9) Eosinophils (%) (Auto) 3 % (0-3) Basophils (%) (Auto) 1 % (0-3) Neutrophils # (Auto) 5.0 x10^3uL (1.8-7.7) Lymphocytes # (Auto) 3.5 x10^3/uL (1.0-4.8) Monocytes # (Auto) 0.6 x10^3/uL (0.0-1.1) Eosinophils # (Auto) 0.3 x10^3/uL (0.0-0.7) Basophils # (Auto) 0.1 x10^3/uL (0.0-0.2) Sodium Level 140 mmol/L (136-145) Potassium Level 3.8 mmol/L (3.5-5.1) Chloride Level 103 mmol/L (98-107) Carbon Dioxide Level 27 mmol/L (21-32) Anion Gap 10 (6-14) Blood Urea Nitrogen 11 mg/dL (7-20) Creatinine 0.8 mg/dL (0.6-1.0) Estimated GFR (Cockcroft-Gault) 89.7 BUN/Creatinine Ratio 14 (6-20) Glucose Level 97 mg/dL (70-99) Calcium Level 8.9 mg/dL (8.5-10.1) Total Bilirubin Pending Aspartate Amino Transferase (AST) Pending Alanine Aminotransferase (ALT) Pending Alkaline Phosphatase Pending Total Protein Pending Albumin Pending Albumin/Globulin Ratio Pending Vital Signs: Vital Signs Date Time Temp Pulse Resp B/P (MAP) Pulse Ox O2 Delivery O2 Flow Rate FiO2 11/02/21 10:03 98.2 87 16 131/81 (98) 98 Room Air EKG: EKG: [] Radiology/Procedures: Radiology/Procedures: [] Heart Score: C/O Chest Pain: N/A Risk Factors: Risk Factors: DM, Current or recent (<one month) smoker, HTN, HLP, family history of CAD, obesity. Risk Scores: Score 0 - 3: 2.5% MACE over next 6 weeks - Discharge Home Score 4 - 6: 20.3% MACE over next 6 weeks - Admit for Clinical Observation Score 7 - 10: 72.7% MACE over next 6 weeks - Early Invasive Strategies Course & Med Decision Making: Course & Med Decision Making Pertinent Labs and Imaging studies reviewed. (See chart for details) The patient was not tender to palpation. She does not have any rash or other joe in the area of discomfort. Her chest x-ray is negative for acute findin gs. Her labs are unremarkable. This is likely a musculoskeletal strain. It should heal on its own. She can take Tylenol and ibuprofen. She is stable for discharge at this time. [] Pamella Disclaimer: Pamella Disclaimer: This electronic medical record was generated, in whole or in part, using a voice recognition dictation system. Departure Departure: Impression: Primary Impression: Left-sided chest wall pain Disposition: HOME / SELF CARE / HOMELESS Condition: STABLE Referrals: PCPLIZETH (PCP) Patient Instructions: Chest Wall Pain, [id number] VONDA MCGOVERN DO Nov 02, 2021 11:31
[2021-11-02 11:32] LABS: ALBUMIN 3.9 g/dL (3.4-5.0); ALBUMIN/GLOBULIN RATIO 1.1 (1.0-1.7); TOTAL BILIRUBIN 0.3 mg/dL (0.2-1.0); TOTAL PROTEIN 7.5 g/dL (6.4-8.2)
[2021-11-02 11:45] VITALS: BP 128/80
== END 2021-11-02 11:40 | disposition home or self-care (01) ==
LOC: ER 09:21
DX: R07.89 Other chest pain (principal); F17.210 Nicotine dependence, cigarettes, uncomplicated; Z88.0 Allergy status to penicillin; Z88.8 Allergy status to other drugs, medicaments and biological substances
CPT/HCPCS: 36415; 71045; 80053; 81001; 81025; 85025; 99284

== ENCOUNTER 2021-11-16 06:41 | Emergency (ER) | payer OTHER, MEDICAID ==
[~2021-11-16] VITALS: Ht 157.5 cm; Wt 104.2 kg
--- NOTE | 2021-11-16 08:10 | PHYS DOC ---
Past History Past Medical History: No Pertinent History Additional Past Medical Histor: SHINGLES, MRSA Past Surgical History: Cholecystectomy, Other Additional Past Surgical Histo: adnoidectomy; multiple I&D Smoking: Cigarettes Alcohol Use: Occasionally Drug Use: None General Adult EDM: Chief Complaint: MECHANICAL FALL HPI: HPI: Patient is a 21-year-old female coming in for chin wound. Patient was walking into work when she slipped on some ice and fell forward. Patient states that her cup she was holding struck her in the chin. No loss of consciousness or other injuries. Last tetanus within 5 years Review of Systems: Review of Systems: All other systems within normal limits except for as noted in the HPI Allergies: Allergies: Allergies Coded Allergies Type Severity Reaction Last Updated Verified Penicillins Allergy Unknown RASH 05/20/21 Yes adhesive tape Allergy Unknown 05/20/21 Yes Physical Exam: PE: Constitutional: Well developed, well nourished, no acute distress, non-toxic appearance. [] HENT: Normocephalic, atraumatic, bilateral external ears normal, nose normal. No loose teeth, bite normal, no deformity of jaw [] Eyes: PERRLA, conjunctiva normal, no discharge. [] Neck: No rigidity, supple, no stridor. [] Cardiovascular: Regular rate and rhythm, brisk cap refill [] Lungs & Thorax: Non labored symmetric respirations, no tachypnea or respiratory distress [] Abdomen: Soft, nondistended. Skin: Warm, dry, no erythema, no rash. 1 cm linear superficial abrasion on chin [] Back: Unremarkable Extremities: No deformities, range of motion grossly intact, no lower extremity edema [] Neurologic: Alert and oriented X 3, no focal deficits noted. [] Psychologic: Affect normal, judgement normal, mood normal. [] EKG: EKG: [] Radiology/Procedures: Radiology/Procedures: [] Heart Score: C/O Chest Pain: No Risk Factors: Risk Factors: DM, Current or recent (<one month) smoker, HTN, HLP, family history of CAD, obesity. Risk Scores: Score 0 - 3: 2.5% MACE over next 6 weeks - Discharge Home Score 4 - 6: 20.3% MACE over next 6 weeks - Admit for Clinical Observation Score 7 - 10: 72.7% MACE over next 6 weeks - Early Invasive Strategies Course & Med Decision Making: Course & Med Decision Making Pertinent Labs and Imaging studies reviewed. (See chart for details) [] Dragon Disclaimer: Dragon Disclaimer: This electronic medical record was generated, in whole or in part, using a voice recognition dictation system. Departure Departure: Impression: Primary Impression: Chin abrasion, non-infected Additional Impression: Fall Disposition: HOME / SELF CARE / HOMELESS Condition: STABLE Referrals: PCP,NO (PCP) Patient Instructions: Wound Care, [id number] NEDRA BRASWELL MD Nov 16, 2021 08:10
[2021-11-16] MEDS ORDERED: ACETAMINOPHEN 500 MG TABLET PO ONE (08:15)
[2021-11-16 08:20] VITALS: BP 115/68
== END 2021-11-16 08:20 | disposition home or self-care (01) ==
LOC: ER 06:41
DX: S00.81XA Abrasion of other part of head, initial encounter (principal); F17.210 Nicotine dependence, cigarettes, uncomplicated; Z88.0 Allergy status to penicillin; Z88.8 Allergy status to other drugs, medicaments and biological substances; W00.0XXA Fall on same level due to ice and snow, initial encounter; Y93.89 Activity, other specified; Y92.89 Other specified places as the place of occurrence of the external cause; Y99.8 Other external cause status
CPT/HCPCS: 99282

== ENCOUNTER 2021-12-10 05:12 | Emergency (ER) | payer MEDICAID, OTHER ==
--- NOTE | 2021-12-10 05:21 | PHYS DOC ---
Past History Past Medical History: No Pertinent History Additional Past Medical Histor: SHINGLES, MRSA; PCOS Past Surgical History: Cholecystectomy, Tonsillectomy, Other Additional Past Surgical Histo: adnoidectomy; multiple I&D Smoking: Cigarettes Alcohol Use: Occasionally Drug Use: None Adult General Chief Complaint Chief Complaint: NAUSEA/VOMITING/DIARRHEA HPI HPI Patient is a 21-year-old female presents with nausea, vomiting and diarrhea has been going on for about a day. Denies any recent travel, traumas, fevers, chest pain, shortness of breath, abdominal pain other than a little cramping when she vomited, dysuria, hematuria, blood in the stool or diarrhea. Denies any vaginal bleeding, discharge, pain or history of STIs. Denies any known ill contacts. States that she had for 5 episodes of nonbloody nonbilious emesis at home but has not had any over the last hour. Wants a Covid swab. Review of Systems Review of Systems Review of systems otherwise unremarkable except noted in HPI Allergies Allergies Allergies Coded Allergies Type Severity Reaction Last Updated Verified Penicillins Allergy Unknown RASH 05/20/21 Yes adhesive tape Allergy Unknown 05/20/21 Yes Physical Exam Physical Exam Constitutional: Well developed, well nourished, no acute distress, non-toxic appearance. [] HENT: Normocephalic, atraumatic, bilateral external ears normal, oropharynx moist, no oral exudates, nose normal. [] Eyes: conjunctiva normal, no discharge. [] Neck: Normal range of motion, no tenderness, supple, no stridor. [] Cardiovascular:Heart rate regular rhythm, no murmur [] Lungs & Thorax: Bilateral breath sounds clear to auscultation [] Abdomen: soft, no tenderness, no masses, no pulsatile masses. [] Skin: Warm, dry, no erythema, no rash. [] Neurologic: Alert and oriented X 3, no focal deficits noted. [] Psychologic: Affect normal, judgement normal, mood normal. [] EKG EKG [] Radiology/Procedures Radiology/Procedures [] Heart Score C/O Chest Pain: No Risk Factors: Risk Factors: DM, Current or recent (<one month) smoker, HTN, HLP, family history of CAD, obesity. Risk Scores: Risk Factors: DM, Current or recent (<one month) smoker, HTN, HLP, family history of CAD, obesity. Course & Med Decision Making Course & Med Decision Making Patient is a 21-year-old female presents with nausea, vomiting and diarrhea Vital signs not concerning. Physical exam noted above. Given ODT Zofran. Patient immediately requesting p.o. fluids and tolerated them well. Covid swab pending. Discussed symptom management at home. Advised on diet. Advised to follow-up in the morning with primary care physician. Gave Covid education and quarantine in case swab is positive for Covid. Discussed influenza. Gave return precautions to the ED. Patient grateful, verbalized understanding and agreed with plan of discharge. [] Dragon Disclaimer Dragon Disclaimer This electronic medical record was generated, in whole or in part, using a voice recognition dictation system. Departure Departure: Impression: Primary Impression: Nausea vomiting and diarrhea Disposition: HOME / SELF CARE / HOMELESS Condition: IMPROVED Referrals: PCPLIZETH (PCP) [facility] Patient Instructions: Diarrhea, Nausea and Vomiting Additional Instructions: Thank you for coming into the emergency department tonight and allowing us to take care of you. Please read all the attached information carefully go over things we discussed. Please take your nausea medicine as prescribed and as needed. Please stay well-hydrated. Please eat a light clear diet over the next couple of days as discussed. Please follow-up in the morning with your primary care physician update on your ED visit and set up a follow-up. Please come back with new or concerning symptoms as discussed. NEYMAR TROTTER MD Dec 10, 2021 05:20
[2021-12-10] MEDS ORDERED: ONDANSETRON 4MG ODT 4TABLET STARTPACK. PO ONE (06:00)
[2021-12-10] MEDS ORDERED: ONDANSETRON ODT 4 MG TAB.RAPDIS PO ONE (06:00)
[2021-12-10] MEDS ORDERED: diphenhydrAMINE HCL 25 MG CAPSULE PO ONE (06:00)
== END 2021-12-10 06:05 | disposition home or self-care (01) ==
LOC: ER 05:12
DX: R11.2 Nausea with vomiting, unspecified (principal); R19.7 Diarrhea, unspecified; F17.210 Nicotine dependence, cigarettes, uncomplicated; Z90.49 Acquired absence of other specified parts of digestive tract; Z88.0 Allergy status to penicillin; Z88.8 Allergy status to other drugs, medicaments and biological substances
CPT/HCPCS: 81025; 99284; Q0162; Q0163